=== PATIENT | male | born 1965 | race Caucasian/White ===

== ENCOUNTER 2020-09-03 23:05 | Emergency (ER) | payer OTHER ==
[2020-09-03] MEDS ORDERED: Lidocaine 1% with EPINEPHrine 1:100,000 50 ML MDV INFILT STA (23:10)
[2020-09-03] MEDS ORDERED: Diphtheria,Pertussis(Acell),Tetanus Vaccine 0.5 ML Syringe IM ONE (23:10)
[2020-09-03] MEDS ORDERED: Bacitracin Oint 1 GM U/D Packet TOP ONE (23:11)
--- NOTE | 2020-09-04 00:48 | CRLCT ---
For Patients: As a result of the Century Cures Act, medical imaging exams and procedure reports are released immediately into your electronic medical record. You may view this report before your referring provider. If you have questions, please contact your health care provider. INDICATION: Head injury TECHNIQUE: CT head without contrast. COMPARISON: None FINDINGS: CSF spaces: Within normal limits for age. Brain parenchyma: The gaston-white differentiation is normal. No sign of mass, hemorrhage, or midline shift. Skull base and calvarium: The visualized paranasal sinuses and mastoid air cells demonstrate no acute or significant findings. The visualized orbits are grossly unremarkable. No skull fractures. IMPRESSION: Unremarkable noncontrast head CT. Please note that all CT scans at this facility use dose modulation, iterative reconstruction, and/or weight-based dosing when appropriate to reduce radiation dose to as low as reasonably achievable. Dictated by Yany Viveros MD @ 09/04/2020 12:47:[address] Yany Viveros @ Sep 04 2020 12:47AM
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
== END 2020-09-04 02:00 | disposition home or self-care (01) ==
LOC: JP.ED 23:05
DX: S06.0X0A Concussion without loss of consciousness, initial encounter (principal); S01.81XA Laceration without foreign body of other part of head, initial encounter; Z23 Encounter for immunization; W20.8XXA Other cause of strike by thrown, projected or falling object, initial encounter
CPT/HCPCS: 12013; 70450; 90471; 90715; 99283; 99284-25